=== PATIENT | male | born 1955 | race Caucasian/White ===

== ENCOUNTER → 2023-04-23 | Outpatient (CLI) | payer MEDICARE, MEDICAID | LOC: M LAB 11:56 | PROVIDERS: ATTEND Psychiatry & Neurology Neurology | DX: R41.82 Altered mental status, unspecified (principal) ==

== ENCOUNTER → 2023-04-23 | Outpatient (CLI) | payer MEDICARE, MEDICAID | LOC: M RAD 12:55 | PROVIDERS: ATTEND Psychiatry & Neurology Neurology | DX: R44.1 Visual hallucinations (principal); R41.82 Altered mental status, unspecified ==